=== PATIENT | female | born 2000 | race Two or more races ===

== ENCOUNTER 2020-07-24 11:00 | Observation (INO) | payer SELFPAY ==
[2020-07-24] MEDS ORDERED: ONDANSETRON PF 4 MG/2 ML VIAL. IVP PRN (11:30)
[2020-07-24 11:42] LABS: BILIRUBIN,URINE NEGATIVE (NEG); CLARITY,URINE CLEAR; COLOR,URINE AMBER; NITRITE,URINE NEGATIVE (NEG); PROTEIN,URINE NEGATIVE (NEG-TRACE); UROBILINOGEN,URINE 0.2 mg/dL (0.2 mg/dL)
[2020-07-24 11:49] LABS: BARBITURATES NEG (NEG); BENZODIAZEPINES NEG (NEG); CANNABINOIDS NEG (NEG); COCAINE NEG (NEG); METHADONE NEG (NEG); OPIATES NEG (NEG); PHENCYCLIDINE NEG (NEG)
[2020-07-24 11:55] LABS: AMPHETAMINE/METHAMPHETAMINE NEG (NEG)
[2020-07-24 12:04] LABS: AMNIO PT NEGATIVE
[2020-07-24 12:14] LABS: RBC,URINE 0 /HPF (0-2)
[2020-07-24 12:15] LABS: BACTERIA,URINE MANY /HPF (0-FEW)
[2020-07-24] MEDS ORDERED: ACETAMINOPHEN 325 MG TABLET. PO PRN (13:30)
[2020-07-24] MEDS ORDERED: IV RINGERS,LACTATED 1000ML 1,000 ML IV SCH (14:00)
[2020-07-29] MEDS ORDERED: IBUP-1060 PO (09:12)
[2020-07-29] MEDS ORDERED: DOCU-109 PO (09:12)
== END 2020-07-24 13:10 | disposition home or self-care (01) ==
LOC: 3 SO LND 11:00
PROVIDERS: ADMIT Obstetrics & Gynecology; ATTEND Obstetrics & Gynecology
DX: O42.92 Full-term premature rupture of membranes, unspecified as to length of time between rupture and onset of labor (principal); Z3A.37 37 weeks gestation of pregnancy; Z79.899 Other long term (current) drug therapy
CPT/HCPCS: 36415; 80307; 81001; 84112; 87086; G0378; G0379